=== PATIENT | female | born 1970 | race Caucasian/White ===

== ENCOUNTER 2018-10-02 14:25 | Emergency (ER) | payer SELFPAY ==
[~2018-10-02] VITALS: Ht 160 cm; Wt 86.2 kg
[2018-10-02 14:25] VITALS: BP 132/108
--- NOTE | 2018-10-02 14:25 | NUR ---
PATIENT BIB ALS TO ER BED 10.
--- NOTE | 2018-10-02 14:46 | NUR ---
PRESENTED TO ED WITH C/O CHEST AND ABDOMINAL PAIN THAT STARTED 2 HOURS AGO. SHARP, THROBBING, ACHING, AND BURNING SENSATION. PAIN RADIATIES TO R UPPER ABDOMEN. NUMBNESS AND TINGLING IN HANDS PER PT. DIFFUCULTY BREATHING. USES ACCESSROY MUSCLES WHEN BREATHING. MD NOTIFIED. WILL CONTINUE TO MONITOR.
[2018-10-02] MEDS ORDERED: KETOROLAC 30 MG/ML VIAL IVP ONE (15:50)
--- NOTE | 2018-10-02 16:30 | NUR ---
Patient discharged with v/s stable. Written and verbal after care instructions given and explained. Patient alert, oriented and verbalized understanding of instructions. Ambulatory with steady gait. All questions addressed prior to discharge. ID band removed. Patient advised to follow up with PMD. Rx of Prilosec, Zofran, and Motrin given. Patient educated on indication of medication including possible reaction and side effects. Opportunity to ask questions provided and answered.
[2018-10-02 16:37] VITALS: BP 132/108
== END 2018-10-02 16:30 | disposition home or self-care (01) ==
LOC: MED 14:25
DX: R07.89 Other chest pain (principal); R11.0 Nausea; R19.7 Diarrhea, unspecified; F41.9 Anxiety disorder, unspecified; Z90.49 Acquired absence of other specified parts of digestive tract; Z88.2 Allergy status to sulfonamides; Z98.890 Other specified postprocedural states
CPT/HCPCS: 81002; 93005; 96374; 99283; J1885